=== PATIENT | female | born 1990 | race Caucasian/White ===

== ENCOUNTER 2018-09-07 06:30 | Outpatient (CLI) | payer BC ==
[2018-09-07 12:26] LABS: #Eosinphils 0.1 thou/uL (0.0-0.7); #Lymphocytes 1.6 thou/uL (1.20-3.40); #Monocytes 0.4 thou/uL (0.11-0.59); #Neutrophils 2.5 thou/uL (1.40-6.50); %Eosinophils 2.1 % (0.0-10.0); %Lymphocytes 34.7 % (21.0-51.0); %Monocytes 7.6 % (0.0-10.0); %Neutrophils 54.6 % (42.0-75.0); Mean Corpuscular Hemoglobin 33.3 pg (27.0-31.0); Mean Corpuscular Volume 95.1 fL (78.0-98.0); Mean Platelet Volume 8.7 fL (7.4-10.4); Platelet Count 198 thou/uL (130-400); RBC Distribution Width 11.6 % (11.5-14.5); Red Blood Cell (RBC) Count 4.51 mill/uL (4.20-5.40); White Blood Cell (WBC) Count 4.6 thou/uL (4.8-10.8)
[2018-09-07 12:43] LABS: BHCG - Serum Negative (NEGATIVE); Pregs Control Background? CLEAR/WHITE (CLR/WHITE); Pregs Control Bar Appear? YES (CONTROL BAR)
== END 2018-09-07 06:31 | disposition home or self-care (01) ==
LOC: LABBT 06:30
PROVIDERS: ATTEND Orthopaedic Surgery Hand Surgery
DX: Z01.812 Encounter for preprocedural laboratory examination (principal); M67.432 Ganglion, left wrist; M25.332 Other instability, left wrist
CPT/HCPCS: 84703; 85025

== ENCOUNTER 2018-09-09 09:14 | Day surgery (SDC) | payer BC ==
[2018-09-07 11:34] VITALS: BMI 24.3
[2018-09-09] MEDS ORDERED: Midazolam HCl 2 mg/2 ml Vial ONE (11:41)
[2018-09-09] MEDS ORDERED: Fentanyl 100 MCG/2 ML VIAL ONE ×2 (11:41→12:28)
[2018-09-09] MEDS ORDERED: Propofol 500 MG/50 ML VIAL ONE (12:28)
[2018-09-09] MEDS ORDERED: Bupivacaine HCl 0.5%/Epinephrine 1:200,000/PF 30 ml Vial ONE (12:37)
[2018-09-09] MEDS ORDERED: Lidocaine 1% PF 5 ML VIAL ONE (13:01)
[2018-09-09] MEDS ORDERED: PROPOFOL 200 MG/20 ML VIAL ONE (13:01)
[2018-09-09] MEDS ORDERED: Dexamethasone 20 MG/5 ML VIAL ONE (13:01)
[2018-09-09] MEDS ORDERED: ePHEDrine 50 MG/ML VIAL ONE (13:01)
[2018-09-09] MEDS ORDERED: Ondansetron PF 4 MG/2 ML Vial ONE (13:01)
[2018-09-09] MEDS ORDERED: Propofol 1,000 MG/100 ML VIAL IV ONE ×2 (13:23)
[2018-09-09] MEDS ORDERED: Ketorolac Tromethamine 30 MG/ML VIAL ONE (14:30)
--- NOTE | 2018-09-12 08:52 | OP ---
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 FINDINGS: Midcarpal instability with positive ligament Shuck Clunk test, midcarpal instability was found in office and when she was asleep. PROCEDURE PERFORMED: 1. Arthroscopy of left wrist, diagnostic. 2. Left wrist Von Cox dorsal wrist plication. SPECIMENS: None. COMPLICATIONS: None. TOURNIQUET TIME: 35 minutes. ESTIMATED BLOOD LOSS: 10 mL. FINDINGS: Preoperative and intraoperative ligament Shuck Clunk test positive. DESCRIPTION OF PROCEDURE: After successful general endotracheal, limb was prepped and draped. Time-out was done appropriately and matched. We then placed and prepped and draped the arm in an arm magaña with the standard table traction for wrist arthroscopy. We outlined the 6U and 6R portals and well as 3-4 portal. We entered the 3-4 portal with fluid, inflated the joint and then entered that with the scope, one-eye scope was used to perform diagnostic arthroscopy both here in the 6U portal, and found no triangular fibrocartilage tear, no radial ulnar chondromalacia, no chondromalacia proximal or distal row. There was also no intercarpal ligament tear. We now removed the arthroscope. We then closed the 3-4 portal, exsanguinated the limb, inflated the tourniquet to 250 mmHg pressure, took the arm out of the arthroscopy magaña, and made an incision along the 6R portal down to the 5th compartment through a dorsal compartment, retracted extensor digiti minimi radially and ulnarly, and then from here, we began Von Cox plication. We found 3 areas of tightening, lifted up approximately 5 mm piece of the capsule in line with the intracapsular ligaments in almost a V-shape to tighten the wrist, so we would not clunk. For additional, we added a fourth. Each one had two #1 Ethibond in a [id number], placed below the clamp to tighten up the capsule. Once all 8 sutures were placed, there was no clunk whatsoever and only minimally decreased palmar flexion. I released the tourniquet. We obtained hemostasis. We closed half of the floor of the 5th dorsal compartment. We did a subcutaneous closure with interrupted 4-0 Monocryl and 4-0 nylon. The dermal closure was accomplished in an interrupted mattress pattern. Bulky dressing was applied. She was placed in a sugar-tong splint and left the operating without complication. Return to our clinic in 7 days for casting. The splint was placed in slight ulnar-radial deviation and extension of the wrist/dorsiflexion. Job ID: [id number]
== END 2018-09-09 15:55 | disposition home or self-care (01) ==
LOC: SDC 09:14
PROVIDERS: ATTEND Orthopaedic Surgery Hand Surgery
PROC: 0RJP4ZZ Inspection of Left Wrist Joint, Percutaneous Endoscopic Approach (ICD-10-PCS; principal; 2018-09-09)
PROC: 0LB60ZZ Excision of Left Lower Arm and Wrist Tendon, Open Approach (ICD-10-PCS; principal; 2018-09-09)
DX: M67.432 Ganglion, left wrist (principal); M25.332 Other instability, left wrist; M65.9 Synovitis and tenosynovitis, unspecified; M94.8X4 Other specified disorders of cartilage, hand; Z79.899 Other long term (current) drug therapy
CPT/HCPCS: 76000; J0670; J0690; J1100; J1885; J2001; J2250; J2405; J2704; J3010; J3490